=== PATIENT | male | born 1950 | race Caucasian/White ===

== ENCOUNTER 2016-06-04 08:58 | Emergency (ER) | payer MEDICARE, BC ==
--- NOTE | 2016-06-04 09:35 | EDM.PDOC ---
ED HPI NEURO - General Chief Complaint: Neuro Symptoms/Deficits Stated Complaint: right sided numbness and weakness Time Seen by Provider: 06/04/16 09:10 Source of Information: Reports: Patient History Limitations: Reports: No limitations - History of Present Illness INITIAL COMMENTS - FREE TEXT/NARRATIVE: History and physical: History of present illness: [Pt is brought to the ER by [place] ambulance. He reports that between 7 and 8 a.m. this morning he noticed numbness to his R side, including upper and lower extremities. He started to feel lightheaded and had some weakness to his R upper and lower extremities. He sank to the floor, and rolled onto his side. States that he did not actually fall, hit his head or lose consciousness. His daughter saw him at 0800 and noticed that patient didn't look quite right, so she called for EMS. In route to ER, ems did not appreciate any neuro deficits, but once he arrived at the ER his speech started to mildly slur. Sounded like he had a thickened tongue. he complains of some stiffness and discomfort to L neck area. 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 Underwent gamma knife radiation at [place] in May 2016. Reports that he has a blood clot in his leg and has had a IVC filter placed. He cannot take blood thinners due to hemorrhage. Has been following with Dr. Wilson at [facility]. ] Review of Systems: As per history of present illness and below otherwise all systems reviewed and negative. Past medical history: As per history of present illness and as reviewed below otherwise noncontributory. Surgical history: As per history of present illness and is reviewed below other wright noncontributory. Social history: No reported history of drug or alcohol abuse. Family history: As per history of present illness and is reviewed below otherwise noncontributory. Physical exam: HEENT: Atraumatic, normocephalic. PERRLA. EOMI. Visual deficit to R upper visual field of eye. This is not new or a change for patient. mucous membranes moist, throat clear. neck supple, no carotid bruit appreciated. trachea midline. Lungs: Clear to auscultation, breath sounds equal bilaterally, chest nontender. Heart: S1-S2, regular rate and rhythm, negative for clicks, rubs, or JVD. Abdomen: Soft, nondistended, nontender. Normoactive bowel sounds. Negative for masses or hepatosplenomegaly. Pelvis: Stable, nontender. Genitourinary: Deferred. Rectal: Deferred. Extremities: No swelling or cyanosis. atraumatic, negative for cords or calf pain. Neurovascular unremarkable. Neuro: Is awake and alert. Scores 4 on NIH stroke scale. Patient recalls the month as April, states that he is at [facility], and his age as 56. Change in sensation to RLE. Speech is mostly clear, but at times cannot fully state what he is thinking. Cranial nerves II through XII unremarkable. Cerebellum unremarkable. Motor and sensory unremarkable throughout. Exam nonfocal. Diagnostics: [head CT w/o contrast, EKG, CBC, BMP, UA, PT/INR/PTT] Impression: [parenchymal brain hemorrhage] Plan: [Contacted [facility] at 0925. Spoke with interventional neurologist, Dr. Wilson, who agrees to see patient, but requests that patient be seen in ER at [facility] prior to ICU admission. Patient will be transported to [facility] via [place] fixed wing. Risks and benefits discussed with patient/family. Risks of transfer: Worsening of condition, aircraft/vehicle crash, . Benefits of transfer specialty care interventions that provided at a local facility. Risks of non- transfer: Lack of specialist treatment/interventions, worsening of condition, . Benefits of non- transfer: Status familiar environment and close to home. Patient/family verbalize understanding and are in agreement with transfer. Since arrival in ER, patient starts to complain of aching and stiffness to his L neck/occipital area. This is improved with warm wash cloths. Definitive disposition and diagnosis is appropriate pending reevaluation and review of above. - Related Data Allergies/ADRs: Allergies Allergy/AdvReac Type Severity Reaction Status Date / Time Penicillins Allergy Cannot Verified 06/04/16 09:12 Remember Home Meds: Home Meds Magnesium Chloride [Magnesium Dr] 64 mg PO BID 05/19/15 [History] Phenytoin Sodium Extended [Dilantin] 100 mg PO 1200 05/19/15 [History] Phenytoin Sodium Extended [Dilantin] 100 mg PO BEDTIME 05/19/15 [History] Phenytoin Sodium Extended [Dilantin] 200 mg PO QAM 05/19/15 [History] Simvastatin [Simvastatin] 40 mg PO BEDTIME 05/19/15 [History] Ibuprofen 600 mg PO Q6H PRN 01/24/16 [History] Past Medical History Cardiovascular History: Reports: High cholesterol, Hypertension Neurological History: Reports: CVA, Seizure - Past Surgical History HEENT Surgical History: Reports: Tonsillectomy GI Surgical History: Reports: Cholecystectomy Social & Family History - Family History Family Medical History: Noncontributory - Tobacco Use Smoking Status *Q: Never Smoker - Caffeine Use Caffeine Use: Reports: None - Recreational Drug Use Recreational Drug Use: No ED ROS GENERAL - Review of Systems Review Of Systems: ROS reveals no pertinent complaints other than HPI. ED EXAM, NEURO - Physical Exam Exam: See Below Course - Vital Signs Last Recorded V/S: Last Vital Signs Temp 98.8 F 06/04/16 10:21 Pulse 64 06/04/16 10:59 Resp 20 06/04/16 10:31 BP 130/76 06/04/16 10:59 Pulse Ox 98 06/04/16 10:31 - Orders/Labs/Meds Orders: Active Orders 24 hr Category Date Time Status Head wo Cont [CT] Stat Exams 06/04/16 08:59 Taken Saline Lock Insert [OM.PC] Routine Oth 06/04/16 09:02 Ordered Labs: Laboratory Tests 06/04/16 06/04/16 06/04/16 Range/Units 09:25 09:25 09:25 WBC 5.7 (5.0-10.0) 10^3/uL RBC 4.56 (4.50-6.00) 10^6/uL Hgb 14.4 (14.0-18.0) g/dL Hct 42.1 (40.0-54.0) % MCV 92.3 (82.0-94.0) fL MCH 31.6 (27.0-32.0) pg MCHC 34.2 (33.0-38.0) g/dL RDW Coeff of [place] 13.1 (11.0-15.0) % Plt Count 180 (150-400) 10^3/uL Neut % (Auto) 78.3 (35-85) % Lymph % (Auto) 8.7 L (10-55) % [place] % (Auto) 11.5 (0-16) % Eos % (Auto) 1.1 (0-5) % Baso % (Auto) 0.4 (0-3) % Neut # (Auto) 4.43 (1.80-7.00) 10^3/uL Lymph # (Auto) 0.49 L (1.00-4.80) 10^3/uL [place] # (Auto) 0.65 (0.00-0.80) 10^3/uL Eos # (Auto) 0.06 (0.00-0.45) 10^3/uL Baso # (Auto) 0.02 10^3/uL PT 10.7 (9.7-12.3) SEC INR 0.99 (0.92-1.18) APTT 24.3 L (24.5-30.9) SEC Sodium 141 (136-145) mEq/L Potassium 3.8 (3.5-5.0) mEq/L Chloride 106 (98-106) mEq/L Carbon Dioxide 27 (21-32) mmol/L BUN 12 (7-18) mg/dL Creatinine 0.9 (0.7-1.3) mg/dL Est Cr Clr Drug Dosing 88.62 mL/min Estimated GFR (MDRD) > 60 (>=60) mL/min Glucose 100 H (75-99) mg/dL Calcium 8.5 (8.4-10.1) mg/dL Creatine Kinase 55 (35-232) U/L Departure - Departure Time of Disposition: 10:45 Disposition: DC/Tfer to Acute Hospital 02 Condition: fair Clinical Impression: Brain bleed Referrals: Shamar Angeles MD [Primary Care Provider] - Forms: ED Department Discharge - My Orders Last 24 Hours: My Active Orders 06/04/16 08:59 Head wo Cont [CT] Stat 06/04/16 09:02 Saline Lock Insert [OM.PC] Routine - Assessment/Plan Last 24 Hours: My Active Orders 06/04/16 08:59 Head wo Cont [CT] Stat 06/04/16 09:02 Saline Lock Insert [OM.PC] Routine
[2016-06-04 09:44] LABS: CHLORIDE,CL 106 mEq/L (98-106); SODIUM,NA 141 mEq/L (136-145)
[2016-06-04 11:00] VITALS: BP 130/76
== END 2016-06-04 11:15 ==
LOC: CC.ED 08:58
DX: I61.9 Nontraumatic intracerebral hemorrhage, unspecified (principal); Z88.0 Allergy status to penicillin; Z79.899 Other long term (current) drug therapy; I10 Essential (primary) hypertension; E78.00 Pure hypercholesterolemia, unspecified; Z86.73 Personal history of transient ischemic attack (TIA), and cerebral infarction without residual deficits; G40.909 Epilepsy, unspecified, not intractable, without status epilepticus
CPT/HCPCS: 36415; 70450; 80048; 82550; 85025; 85610; 85730; 93005; 93010; 99285

== ENCOUNTER 2016-06-10 12:24 | Emergency (ER) | payer MEDICARE, BC ==
[2016-06-10] MEDS ORDERED: EPINEPHrine 1:10,000 1 MG/10 ML Syringe IVPUSH ONE (12:30)
--- NOTE | 2016-06-10 12:51 | EDM.PDOC ---
ED HPI CPR - General Chief Complaint: CPR in Progress Stated Complaint: CODE BLUE Time Seen by Provider: 06/10/16 12:30 Source of Information: Reports: EMS, EMS notes reviewed, Family History Limitations: Reports: Other (Full Arrest) - History of Present Illness Symptom Onset Date: 06/10/16 Symptom Onset Time: 11:45 (Patient found unresponsive on floor at [facility]- agonal respirations-unconcious) Witness: No Bystander CPR: No Downtime Before ACLS: Unknown Lock Tender Initial Findings: Reports: Asystole, Unresponsive Pre-Arrest Complaints: Reports: unknown (History A-V Intracranial bleed [id number]) - Related Data Allergies/ADRs: Allergies Allergy/AdvReac Type Severity Reaction Status Date / Time Unable to Assess Allergy Unverified 06/10/16 13:17 Home Meds: Home Meds . [Unable to Verify Home Med List] 06/10/16 [History] Past Medical History Cardiovascular History: Reports: High cholesterol, Hypertension Other Cardiovascular History: IVC to vena cava placed 03/10/16. Neurological History: Reports: CVA, Seizure, Other (see below) (A-V Intracranial Bleed 06-04-2016-Inoperable-) - Past Surgical History HEENT Surgical History: Reports: Tonsillectomy GI Surgical History: Reports: Cholecystectomy Social & Family History - Family History Family Medical History: Noncontributory - Tobacco Use Smoking Status *Q: Never Smoker - Caffeine Use Caffeine Use: Reports: None - Recreational Drug Use Recreational Drug Use: No - Living Situation & Occupation Living situation: Reports: , extended care facility Occupation: disabled ED ROS GENERAL - Review of Systems Review Of Systems: See Below Constitutional: Reports: no symptoms HEENT: Reports: No symptoms Respiratory: Reports: Other (Respiratory arrest) Cardiovascular: Reports: Other (Cardiac Arrest) Endocrine: Reports: no symptoms GI/Abdominal: Reports: No symptoms : Reports: no symptoms Musculoskeletal: Reports: no symptoms Skin: Reports: cyanosis Neurological: Reports: Pre-Existing Deficit, Seizure, Weakness (CVA- Neurological ) Psychiatric: Reports: No symptoms Hematologic/Lymphatic: Reports: no symptoms Immunologic: Reports: no symptoms ED EXAM, CPR - Physical Exam Exam: See Below Limited By: unresponsive, other General Appearance: other (Full cardiac and respiratory arrest) Eye Exam: bilateral eye: abnormal pupil (Fixed and dilated) Throat/Mouth: Other (hitesh Tube in with bagging) Head: atraumatic, normocephalic Respiratory Chest: other (Respiratory arrest see code sheet) Cardiovascular: cpr in progress GI/Abdominal Exam (Abbreviated): no distention 0: brachial pulse (R), brachial pulse (L), femoral (R), femoral (L), dorsalis- pedis (R), dorsalis-pedis (L), 1+: right carotid, left carotid Neurological: unresponsive (Full Arrest-Pupils fixed and dilated-no spontaneous respiration-) Skin Exam: Warm, Dry ED CPR PROCEDURES - Endotracheal Intubation Time of intubation: 12:15 (Hitesh Tube-via Erin parmedic) ET Intubation Indication: respiratory failure, cardiac arrest Pre-oxygenation: assisted with BVM, 100% FiO2 Placement: uncomplicated placement Confirmed By: CO2 indicator, bilateral breath sounds EKG INTERPRETATION EKG Interpretation Comments: Sinus bradycardia with gradual asystole-when cessation Ras- Course - Vital Signs Last Recorded V/S: Last Vital Signs Temp 37.1 C 06/04/16 10:21 Pulse 64 06/04/16 10:59 Resp 20 06/04/16 10:31 BP 130/76 06/04/16 10:59 Pulse Ox 98 06/04/16 10:31 - Orders/Labs/Meds Labs: Laboratory Tests 06/04/16 06/04/16 06/04/16 Range/Units 09:25 09:25 09:25 WBC 5.7 (5.0-10.0) 10^3/uL RBC 4.56 (4.50-6.00) 10^6/uL Hgb 14.4 (14.0-18.0) g/dL Hct 42.1 (40.0-54.0) % MCV 92.3 (82.0-94.0) fL MCH 31.6 (27.0-32.0) pg MCHC 34.2 (33.0-38.0) g/dL RDW Coeff of [place] 13.1 (11.0-15.0) % Plt Count 180 (150-400) 10^3/uL Neut % (Auto) 78.3 (35-85) % Lymph % (Auto) 8.7 L (10-55) % [place] % (Auto) 11.5 (0-16) % Eos % (Auto) 1.1 (0-5) % Baso % (Auto) 0.4 (0-3) % Neut # (Auto) 4.43 (1.80-7.00) 10^3/uL Lymph # (Auto) 0.49 L (1.00-4.80) 10^3/uL [place] # (Auto) 0.65 (0.00-0.80) 10^3/uL Eos # (Auto) 0.06 (0.00-0.45) 10^3/uL Baso # (Auto) 0.02 10^3/uL PT 10.7 (9.7-12.3) SEC INR 0.99 (0.92-1.18) APTT 24.3 L (24.5-30.9) SEC Sodium 141 (136-145) mEq/L Potassium 3.8 (3.5-5.0) mEq/L Chloride 106 (98-106) mEq/L Carbon Dioxide 27 (21-32) mmol/L BUN 12 (7-18) mg/dL Creatinine 0.9 (0.7-1.3) mg/dL Est Cr Clr Drug Dosing 88.62 mL/min Estimated GFR (MDRD) > 60 (>=60) mL/min Glucose 100 H (75-99) mg/dL Calcium 8.5 (8.4-10.1) mg/dL Creatine Kinase 55 (35-232) U/L Departure - Departure Time of Disposition: 13:24 Disposition: 20 Preliminary Cause of *Q: Respiratory failure Clinical Impression: Cardiac arrest, Respiratory arrest, Intracranial hemorrhage Forms: ED Department Discharge Critical Care Note - Critical Care Note Total Time (mins): 24 MLP Sign Off - Signature Requirements MLP Sign Off: No - Problem List & Annotations (1) Cardiac arrest SNOMED Code(s): 728147567 Code(s): I46.9 - CARDIAC ARREST, CAUSE UNSPECIFIED Status: Acute (2) Respiratory arrest SNOMED Code(s): 47175288 Code(s): R09.2 - RESPIRATORY ARREST Status: Acute - Assessment/Plan Assessment:: [facility] Cardiac arrest with agonal respirations. Non witnessed-Immediate CPR initiated. See code flow sheet. 12:40-Patients requests cessation of all efforts to revive patient. Patient 1243 p.m. Plan: Discharge body to [facility].
[2016-06-10 12:55] LABS: CHLORIDE,CL 95 mEq/L (98-106); SODIUM,NA 137 mEq/L (136-145)
[2016-06-10 13:17] VITALS: BP 104/69
== END 2016-06-10 14:10 | disposition expired ==
LOC: CC.ED 12:24
DX: I46.9 Cardiac arrest, cause unspecified (principal); R09.2 Respiratory arrest; I61.8 Other nontraumatic intracerebral hemorrhage
CPT/HCPCS: 31500; 36415; 51702; 80048; 82550; 83615; 84484; 85025; 85610; 85730; 92950; 96374; 99285; 99291; J0171